=== PATIENT | female | born 1945 | race Hispanic/Latino ===

== ENCOUNTER 2017-10-06 15:03 | Outpatient (CLI) | payer MEDICARE ==
--- NOTE | 2017-10-06 16:20 | ULT ---
THYROID ULTRASOUND: Date: 10/06/17 HISTORY: Multinodular thyroid gland. COMPARISON: None available. FINDINGS: There are three nodules within the right lobe of the thyroid gland, two small subcentimeter hypoechoi c nodules and a larger slightly heterogeneous nodule in the projection of the mid portion superior po le right lobe of thyroid gland measuring 1.1 cm. There are two hypoechoic nodules in the left lobe of the thyroid gland, one located in the superior p ole measuring 0.7 cm and in the mid portion of the left lobe of the thyroid gland measuring 0.6 cm. Right lobe of the thyroid gland measures 5.0 cm x 1.1 cm x 1.5 cm. Left lobe of the thyroid gland salome sures 3.7 cm x 1.1 cm x 1.5 cm. Thyroid isthmus measures 0.3 cm in AP dimension. IMPRESSION: Multinodular thyroid gland with largest thyroid nodule at the junction of the mid portion and superio r pole of right lobe of thyroid gland measuring 1.1 cm. POS: [facility]
== END 2017-10-06 15:04 | disposition home or self-care (01) ==
LOC: SCSULT 15:03
PROVIDERS: ATTEND Family Medicine
DX: E04.2 Nontoxic multinodular goiter (principal)
CPT/HCPCS: 76536

== ENCOUNTER 2018-03-12 12:30 | Outpatient (CLI) | payer MEDICARE ==
--- NOTE | 2018-03-12 13:41 | MRI ---
LUMBAR SPINE MRI WITHOUT IV CONTRAST: History: 73-year-old female with history of low back pain. FINDINGS: Conus medullaris region is unremarkable terminating at L1. Diffuse disc osteophytosis at T11-12 and T 12-L1 resulting in some ventral canal stenosis at T11-12 and some indention of the ventral aspect of the spinal cord, seen only on sagittal imaging. L1-2: Diffuse disc bulging with mild central canal and moderate lateral recess stenosis without signi ficant foraminal stenosis. L2-3: Mild retrolisthesis with marked central canal and lateral recess stenosis and bilateral foramin al stenosis. L3-4: Moderate to severe central canal and bilateral recess stenosis with disc bulging and multiple a nnular fissures with moderate bilateral foraminal stenosis. L4-5: Diffuse disc bulge with annular fissures with mild lateral recess and foraminal stenosis. L5-S1: Diffuse disc osteophytosis without significant central canal stenosis but with moderate right foraminal stenosis. Mild type I endplate changes at L2-3. IMPRESSION: Variable severity up to severe multilevel central canal, lateral recess, and foraminal stenosis. Prom inent disc osteophytosis at T11-12 with moderate ventral thecal sac indention and some moderate centr al cord indention. POS: OFF
== END 2018-03-12 12:31 | disposition home or self-care (01) ==
LOC: SCSMRI 12:30
PROVIDERS: ATTEND Orthopaedic Surgery
DX: M51.16 Intervertebral disc disorders with radiculopathy, lumbar region (principal); M48.061 Spinal stenosis, lumbar region without neurogenic claudication; M99.83 Other biomechanical lesions of lumbar region; G95.89 Other specified diseases of spinal cord
CPT/HCPCS: 72148

== ENCOUNTER 2018-05-27 10:32 | Outpatient (CLI) | payer MEDICARE ==
--- NOTE | 2018-05-28 13:32 | MMO ---
BILATERAL DIGITAL SCREENING MAMMOGRAMS: History: 73-year-old female present for digital screening mammography. There is a history of left breast cance r. Comparison: 11-30-15 FINDINGS: This study is interpreted with the assistance of computer aided detection. There is an overall smaller left breast consistent with prior left breast cancer and lumpectomy. Scat tered areas of fibroglandular change are noted bilaterally. Stable typically benign calcifications. S table right biopsy clip. IMPRESSION: BIRADS category 2 - benign findings. Stable left breast lumpectomy changes and stable typically benig n calcifications. POS: [facility]
== END 2018-05-27 10:33 | disposition home or self-care (01) ==
LOC: SCSMAMMO 10:32
PROVIDERS: ATTEND Family Medicine
DX: Z12.31 Encounter for screening mammogram for malignant neoplasm of breast (principal)
CPT/HCPCS: 77067